=== PATIENT | male | born 2000 | race Hispanic/Latino ===

== ENCOUNTER 2021-09-06 15:06 | Emergency (ER) | payer SELFPAY ==
[2021-09-06] MEDS ORDERED: Ondansetron ODT 4 MG TAB ONE (16:14)
== END 2021-09-06 16:15 | disposition home or self-care (01) ==
LOC: MADERS 15:06
DX: A08.4 Viral intestinal infection, unspecified (principal); R29.700 NIHSS score 0; F17.290 Nicotine dependence, other tobacco product, uncomplicated
CPT/HCPCS: 99283; Q0162